=== PATIENT | male | born 1980 | race Caucasian/White ===

== ENCOUNTER 2018-01-07 08:15 | Emergency (ER) | payer MEDICAID ==
[~2018-01-07] VITALS: Ht 172.7 cm; Wt 84.0 kg
[2018-01-07 08:23] VITALS: BP 129/99
[2018-01-07] MEDS ORDERED: LIDOCAINE HCL 1% 20ML VIAL (Pyxis) INJ INFIL ONE (09:00)
[2018-01-07] MEDS ORDERED: ACETAMINOPHEN 325MG TABLET PO ONE (09:00)
[2018-01-07] MEDS ORDERED: IBUPROFEN 600MG TABLET PO ONE (09:00)
== END 2018-01-07 11:58 | disposition home or self-care (01) ==
LOC: ER 10:19
DX: S61.212A Laceration without foreign body of right middle finger without damage to nail, initial encounter (principal); W26.8XXA Contact with other sharp object(s), not elsewhere classified, initial encounter; Y93.89 Activity, other specified; Y92.69 Other specified industrial and construction area as the place of occurrence of the external cause; Y99.0 Civilian activity done for income or pay
CPT/HCPCS: 12001; 99283; J3490

== ENCOUNTER 2018-01-09 09:44 | Emergency (ER) | payer MEDICAID ==
[~2018-01-09] VITALS: Ht 172.7 cm; Wt 85.0 kg
[2018-01-09] MEDS ORDERED: TETANUS, DIPHTHERIA, PERTUSSIS VAC/PF 0.5ML (>7YR OLD) IM ONE (10:45)
[2018-01-09] MEDS ORDERED: BACITRACIN ZINC OINT UDPKT TOP ONE (12:00)
[2018-01-09] MEDS ORDERED: CEPHALEXIN 250MG CAPSULE PO ONE (12:00)
[2018-01-09 12:12] VITALS: BP 138/98
== END 2018-01-09 12:12 | disposition home or self-care (01) ==
LOC: ER 10:35
DX: S62.634B Displaced fracture of distal phalanx of right ring finger, initial encounter for open fracture (principal); X58.XXXA Exposure to other specified factors, initial encounter; Y93.89 Activity, other specified; Y92.89 Other specified places as the place of occurrence of the external cause; Y99.8 Other external cause status; F12.10 Cannabis abuse, uncomplicated
CPT/HCPCS: 29130; 73140; 90471; 90715; 99283

== ENCOUNTER 2018-01-19 06:31 | Emergency (ER) | payer MEDICAID ==
[~2018-01-19] VITALS: Ht 172.7 cm; Wt 86.0 kg
[2018-01-19 07:02] VITALS: BP 133/87
== END 2018-01-19 07:27 | disposition home or self-care (01) ==
LOC: ER 07:27
DX: S61.214D Laceration without foreign body of right ring finger without damage to nail, subsequent encounter (principal); F12.10 Cannabis abuse, uncomplicated; X58.XXXD Exposure to other specified factors, subsequent encounter
CPT/HCPCS: 99281